=== PATIENT | female | born 1995 | race African-American/Black ===

== ENCOUNTER 2016-12-02 10:52 | Emergency (ER) | payer OTHER ==
[~2016-12-02] VITALS: Ht 167.6 cm; Wt 69.8 kg
[2016-12-02 11:31] LABS: HEMATOCRIT 43.5 % (36.0-46.0); MCH 29.3 PG (29.0-34.0); MCHC 32.6 G/DL (30.0-36.0); MCV 89.9 FL (83-99); MEAN PLAT.VOLUME 10.5 uM^3 (9.5-12.4); PLATELET COUNT 145 K/uL (156-360); RBC DIS.WIDTH-CV 12.9 % (11.8-14.6); RBC DIS.WIDTH-SD 42.7 % (39-53); RED BLOOD COUNT 4.84 M/uL (3.80-5.20); WHITE BLOOD COUNT 5.6 K/uL (4.1-10.2)
[2016-12-02 11:33] LABS: ADD MIUA? YES; BILIRUBIN NEGATIVE; BLOOD LARGE; COLOR YELLOW ((YELLOW)); GLUCOSE (STRIP) NEGATIVE; KETONES 5; LEUKOCYTES LARGE; NITRITE NEGATIVE; PROTEIN (STRIP) 100; SPECIFIC GRAVITY 1.017 (1.000-1.030); UROBILINOGEN 0.2 MG/DL (0.2-1.0)
[2016-12-02 11:46] LABS: BACTERIA NONE SEEN /HPF; EPITHELIAL CELLS RARE /HPF; MUCUS TRACE /LPF; RED BLOOD CELLS 30-40 /HPF (0-5); UCUL ADDED? YES; WHITE BLOOD CELLS TNTC /HPF (0-5)
[2016-12-02 11:47] LABS: CHLORIDE 103 mEq/L (99-109); POTASSIUM 4.1 mEq/L (3.7-5.4); SODIUM 139 mEq/L (136-147)
[2016-12-02 11:50] LABS: GLUCOSE 69 mg/dL (70-99)
[2016-12-02 11:51] LABS: ANION GAP 8 MEQ/L (2-14); TOTAL BILIRUBIN 0.5 mg/dL (0.0-1.0)
[2016-12-02 11:53] LABS: ALKALINE PHOSPHATASE 57 IU/L (3-129)
[2016-12-02 11:54] LABS: GFR ESTIMATE (CALCULATED) > 59 mL/min/; UREA NITROGEN (BUN) 21 mg/dL (9-23)
[2016-12-02 12:06] LABS: QUANTITATIVE HCG < 4.0 MIU/ML
[2016-12-02] MEDS ORDERED: LEVETIRACETAM1000 MG PO (12:50)
[2016-12-02] MEDS ORDERED: DIVALPROEX SOD500 MG PO (12:51)
[2016-12-02] MEDS ORDERED: ZOFRAN ODT4 MG PO (13:05)
[2016-12-02] MEDS ORDERED: KEFLEX500 MG PO (13:05)
[2016-12-02 13:19] VITALS: BP 135/93
== END 2016-12-02 13:20 | disposition home or self-care (01) ==
LOC: EME 10:52
DX: N39.0 Urinary tract infection, site not specified (principal); G40.909 Epilepsy, unspecified, not intractable, without status epilepticus; Z88.0 Allergy status to penicillin
CPT/HCPCS: 80053; 81003; 84702; 85027; 87077; 87086; 87186; 99281; 99283

== ENCOUNTER 2017-01-29 11:29 | Emergency (ER) | payer OTHER ==
[~2017-01-29] VITALS: Ht 167.6 cm; Wt 75.7 kg
[~2017-01-29 11:29] MED LIST: DIVALPROEX SOD500 MG PO; KEFLEX500 MG PO; LEVETIRACETAM1000 MG PO; ZOFRAN ODT4 MG PO
[2017-01-29 13:11] LABS: HEMATOCRIT 41.1 % (36.0-46.0); MCH 28.7 PG (29.0-34.0); MCHC 31.9 G/DL (30.0-36.0); MCV 89.9 FL (83-99); MEAN PLAT.VOLUME 10.4 uM^3 (9.5-12.4); PLATELET COUNT 139 K/uL (156-360); RBC DIS.WIDTH-CV 12.9 % (11.8-14.6); RBC DIS.WIDTH-SD 42.5 % (39-53); RED BLOOD COUNT 4.57 M/uL (3.80-5.20); WHITE BLOOD COUNT 3.4 K/uL (4.1-10.2)
[2017-01-29 13:20] LABS: ADD MIUA? YES; BILIRUBIN NEGATIVE; BLOOD NEGATIVE; COLOR YELLOW ((YELLOW)); GLUCOSE (STRIP) NEGATIVE; KETONES NEGATIVE; LEUKOCYTES TRACE; NITRITE NEGATIVE; PROTEIN (STRIP) NEGATIVE; SPECIFIC GRAVITY 1.017 (1.000-1.030); UROBILINOGEN 0.2 MG/DL (0.2-1.0)
[2017-01-29 13:24] LABS: BACTERIA NONE SEEN /HPF; EPITHELIAL CELLS 1+ /HPF; MUCUS NONE SEEN /LPF; RED BLOOD CELLS 0-5 /HPF (0-5); UCUL ADDED? NO; WHITE BLOOD CELLS 0-5 /HPF (0-5)
[2017-01-29 13:29] LABS: CHLORIDE 106 mEq/L (99-109); POTASSIUM 4.5 mEq/L (3.7-5.4); SODIUM 140 mEq/L (136-147)
[2017-01-29 13:30] LABS: GLUCOSE 81 mg/dL (70-99)
[2017-01-29 13:32] LABS: ANION GAP 7 MEQ/L (2-14)
[2017-01-29 13:34] LABS: GFR ESTIMATE (CALCULATED) > 59 mL/min/
[2017-01-29 13:35] LABS: UREA NITROGEN (BUN) 13 mg/dL (9-23)
[2017-01-29 13:39] LABS: AMPHETAMINE NEGATIVE (500 ng/mL); BARBITURATES NEGATIVE (200 ng/mL); BENZODIAZEPINES NEGATIVE (150 ng/mL); COCAINE NEGATIVE (150 ng/mL); INTERNAL CONTROLS VALID? YES; METHADONE NEGATIVE (200 ng/mL); METHAMPHETAMINE NEGATIVE (500 ng/mL); OPIATES (MORPHINE) NEGATIVE (100 ng/mL); OXYCODONE NEGATIVE (100 ng/mL); PHENCYCLIDINE NEGATIVE (25 ng/mL); PROPOXYPHENE NEGATIVE (300 ng/mL); THC CANNABINOIDS NEGATIVE (50 ng/mL); TRICYCLIC ANTIDEPRESSANTS NEGATIVE (300 ng/mL)
[2017-01-29 13:42] LABS: QUANTITATIVE HCG < 4.0 MIU/ML
[2017-01-29 14:51] VITALS: BP 118/72
== END 2017-01-29 15:01 | disposition home or self-care (01) ==
LOC: EME 11:29
PROVIDERS: Emergency Medicine
DX: G40.909 Epilepsy, unspecified, not intractable, without status epilepticus (principal); Z88.0 Allergy status to penicillin
CPT/HCPCS: 80048; 81003; 84702; 85027; 93005; 99281; 99284

== ENCOUNTER 2017-02-14 19:59 | Emergency (ER) | payer OTHER ==
[~2017-02-14] VITALS: Ht 167.6 cm; Wt 71.4 kg
[2017-02-14] MEDS ORDERED: DEPAKOTE500 MG PO (20:58)
[2017-02-14 21:12] VITALS: BP 113/78
== END 2017-02-14 21:18 | disposition home or self-care (01) ==
LOC: EME → EDBD 19:59 → EME 21:18
DX: G40.909 Epilepsy, unspecified, not intractable, without status epilepticus (principal); T42.6X6A Underdosing of other antiepileptic and sedative-hypnotic drugs, initial encounter; Z91.128 Patient's intentional underdosing of medication regimen for other reason; Z88.0 Allergy status to penicillin
CPT/HCPCS: 93005; 99281; 99285

== ENCOUNTER 2017-05-09 16:46 | Emergency (ER) | payer OTHER ==
[~2017-05-09] VITALS: Ht 167.6 cm; Wt 71.1 kg
[~2017-05-09 16:46] MED LIST changes: +DEPAKOTE500 MG PO
[2017-05-09 18:00] LABS: ADD MIUA? YES; BILIRUBIN NEGATIVE; BLOOD NEGATIVE; COLOR YELLOW ((YELLOW)); GLUCOSE (STRIP) NEGATIVE; KETONES 20; LEUKOCYTES TRACE; NITRITE NEGATIVE; PROTEIN (STRIP) NEGATIVE; SPECIFIC GRAVITY 1.023 (1.000-1.030)
[2017-05-09 18:00] LABS: HEMATOCRIT 40.6 % (36.0-46.0); MCH 27.7 PG (29.0-34.0); MCHC 31.8 G/DL (30.0-36.0); MCV 87.3 FL (83-99); MEAN PLAT.VOLUME 10.3 uM^3 (9.5-12.4); PLATELET COUNT 207 K/uL (156-360); RBC DIS.WIDTH-SD 38.6 % (39-53); RED BLOOD COUNT 4.65 M/uL (3.80-5.20); WHITE BLOOD COUNT 4.9 K/uL (4.1-10.2)
[2017-05-09 18:03] LABS: BACTERIA NONE SEEN /HPF; EPITHELIAL CELLS 1+ /HPF; MUCUS TRACE /LPF; RED BLOOD CELLS 0-5 /HPF (0-5); UCUL ADDED? NO; WHITE BLOOD CELLS 0-5 /HPF (0-5)
[2017-05-09 18:17] LABS: CHLORIDE 108 mEq/L (99-109); POTASSIUM 3.8 mEq/L (3.7-5.4); SODIUM 139 mEq/L (136-147)
[2017-05-09 18:19] LABS: GLUCOSE 85 mg/dL (70-99)
[2017-05-09 18:20] LABS: ANION GAP 7 MEQ/L (2-14)
[2017-05-09 18:21] LABS: TOTAL BILIRUBIN 0.9 mg/dL (0.0-1.0)
[2017-05-09 18:23] LABS: ALKALINE PHOSPHATASE 67 IU/L (3-129); GFR ESTIMATE (CALCULATED) > 59 mL/min/
[2017-05-09 18:24] LABS: QUANTITATIVE HCG < 4.0 MIU/ML; UREA NITROGEN (BUN) 11 mg/dL (9-23)
[2017-05-09] MEDS ORDERED: KEPPRA1000 MG PO (20:27)
[2017-05-09 20:38] VITALS: BP 116/81
== END 2017-05-09 20:39 | disposition home or self-care (01) ==
LOC: EME 16:46
PROVIDERS: Emergency Medicine
DX: G40.909 Epilepsy, unspecified, not intractable, without status epilepticus (principal); T42.76XA Underdosing of unspecified antiepileptic and sedative-hypnotic drugs, initial encounter; Z91.14 Patient's other noncompliance with medication regimen; Z88.0 Allergy status to penicillin
CPT/HCPCS: 80053; 81003; 84702; 85027; 99281; 99285; J1953; J7030; J7050

== ENCOUNTER 2017-10-11 17:14 | Emergency (ER) | payer OTHER ==
[~2017-10-11] VITALS: Ht 167.6 cm; Wt 73.3 kg
[~2017-10-11 17:14] MED LIST changes: +KEPPRA1000 MG PO
[2017-10-11 18:09] LABS: BASOPHIL (%) 0.7 % (0-1); EOSINOPHIL (%) 0.5 % (0-5); HEMOGLOBIN 13.1 G/DL (11.9-15.5); IMMATURE GRANULOCYTE (%) 0.2 % (0.0-0.7); LYMPHOCYTE (%) 39.1 % (15-42); LYMPHOCYTE COUNT 1.7 K/uL (1.0-2.8); MCH 27.8 PG (29.0-34.0); MCHC 32.8 G/DL (30.0-36.0); MCV 84.9 FL (83-99); MONOCYTE (%) 10.6 % (3-12); MONOCYTE COUNT 0.5 K/uL (0-0.8); NEUTROPHIL (%) 48.9 % (45-76); NEUTROPHIL COUNT 2.2 K/uL (1.8-6.4); PLATELET COUNT 211 K/uL (156-360); RBC DIS.WIDTH-CV 13.2 % (11.8-14.6); RBC DIS.WIDTH-SD 41.1 % (39-53); RED BLOOD COUNT 4.71 M/uL (3.80-5.20); WHITE BLOOD COUNT 4.4 K/uL (4.1-10.2)
[2017-10-11 18:19] LABS: CHLORIDE 110 mEq/L (99-109); POTASSIUM 4.4 mEq/L (3.7-5.4); SODIUM 138 mEq/L (136-147)
[2017-10-11 18:21] LABS: GLUCOSE 80 mg/dL (70-99)
[2017-10-11 18:25] LABS: CREATININE 0.8 mg/dL (0.6-1.3); GFR ESTIMATE (CALCULATED) > 59 mL/min/
[2017-10-11 18:26] LABS: UREA NITROGEN (BUN) 11 mg/dL (9-23)
[2017-10-11] MEDS ORDERED: DEPAKOTE500 MG PO (20:52)
[2017-10-11] MEDS ORDERED: KEPPRA750 MG PO (20:52)
[2017-10-11 22:06] VITALS: BP 122/74
== END 2017-10-11 22:16 | disposition home or self-care (01) ==
LOC: EME 17:14
PROVIDERS: Emergency Medicine
DX: R56.9 Unspecified convulsions (principal); G80.9 Cerebral palsy, unspecified
CPT/HCPCS: 70450; 80048; 85025; 99281; 99285; J1953; J7050

== ENCOUNTER 2017-12-05 17:37 | Emergency (ER) | payer OTHER ==
[~2017-12-05] VITALS: Ht 167.6 cm; Wt 71.8 kg
[~2017-12-05 17:37] MED LIST changes: +KEPPRA750 MG PO
[2017-12-05 18:37] LABS: HEMATOCRIT 38.1 % (36.0-46.0); HEMOGLOBIN 12.5 G/DL (11.9-15.5); MCH 28.7 PG (29.0-34.0); MCHC 32.8 G/DL (30.0-36.0); MCV 87.4 FL (83-99); PLATELET COUNT 138 K/uL (156-360); RBC DIS.WIDTH-CV 14.6 % (11.8-14.6); RBC DIS.WIDTH-SD 47.2 % (39-53); RED BLOOD COUNT 4.36 M/uL (3.80-5.20); WHITE BLOOD COUNT 5.2 K/uL (4.1-10.2)
[2017-12-05 18:45] LABS: ALBUMIN 4.3 g/dL (3.2-4.8)
[2017-12-05 18:46] LABS: CHLORIDE 106 mEq/L (99-109); POTASSIUM 5.8 mEq/L (3.7-5.4); SODIUM 138 mEq/L (136-147)
[2017-12-05 18:48] LABS: GLUCOSE 81 mg/dL (70-99); TOTAL PROTEIN 8.3 g/dL (6.4-8.3)
[2017-12-05 18:50] LABS: TOTAL BILIRUBIN 0.8 mg/dL (0.0-1.0)
[2017-12-05 18:51] LABS: ALKALINE PHOSPHATASE 67 IU/L (3-129); SERUM ETHYL ALCOHOL < 10 mg/dL
[2017-12-05 18:52] LABS: CREATININE 0.8 mg/dL (0.6-1.3); GFR ESTIMATE (CALCULATED) > 59 mL/min/
[2017-12-05 18:53] LABS: AST (GOT) 28 IU/L (2-34); UREA NITROGEN (BUN) 17 mg/dL (9-23)
[2017-12-05 18:55] LABS: ALT (GPT) 12 IU/L (3-49)
[2017-12-05 19:00] LABS: QUANTITATIVE HCG < 4.0 MIU/ML
[2017-12-05] MEDS ORDERED: KEPPRA750 MG PO (19:59)
[2017-12-05 21:17] VITALS: BP 132/95
== END 2017-12-05 21:34 | disposition home or self-care (01) ==
LOC: EME 17:37
PROVIDERS: Emergency Medicine
DX: G40.909 Epilepsy, unspecified, not intractable, without status epilepticus (principal); Z91.120 Patient's intentional underdosing of medication regimen due to financial hardship; R51 Headache; R00.1 Bradycardia, unspecified
CPT/HCPCS: 80053; 83605; 84702; 85027; 93005; 99281; 99285; G0480; J1953; J7030; J7050